=== PATIENT | female | born 1955 | race American Indian/Alaskan Native ===

== ENCOUNTER 2020-05-17 15:47 | Emergency (ER) | payer MEDICAID ==
[~2020-05-17] VITALS: Ht 157.5 cm; Wt 78.5 kg
--- NOTE | 2020-05-17 16:07 | NUR ---
PT TAKEN TO BED 4.
[2020-05-17 16:15] VITALS: BP 109/78
--- NOTE | 2020-05-17 16:23 | NUR ---
64 y/o female BIB daughter c/o back pain 10 describes as sharp and aching constant worse with movement [id number]. Pt daughter states the pt moved from [place] and had changes made to insurance so she did not seek medical attention prior to today. Denies N/V/D, +chills intermittent with hotflashes, enopause X10 years. Steroid shots started Q3ansye and in the last month and 1/2 not working anymore. Took Ibuprofen with no relief. PMH: HLD, HTN RX: See chart NK[facility]
[2020-05-17] MEDS ORDERED: MORPHINE SULFATE 4 MG/ML SYR IM ONE (16:50)
[2020-05-17 17:09] VITALS: BP 109/78
--- NOTE | 2020-05-17 17:10 | NUR ---
Patient discharged with v/s stable. Written and verbal after care instructions given and explained. Patient alert, oriented and verbalized understanding of instructions. Ambulatory with steady gait. All questions addressed prior to discharge. ID band removed. Patient advised to follow up with PMD. Rx of orco 5mg-325mg 1 to 2 tabs daily PRN pain given. Patient educated on indication of medication including possible reaction and side effects. Opportunity to ask questions provided and answered.
== END 2020-05-17 17:10 | disposition home or self-care (01) ==
LOC: MED 15:47
DX: M54.5 Low back pain (principal); I10 Essential (primary) hypertension; Z98.890 Other specified postprocedural states
CPT/HCPCS: 81002; 96372; 99283; J2270